=== PATIENT | male | born 1985 | race Hispanic/Latino ===

== ENCOUNTER 2018-04-16 07:15 | Emergency (ER) | payer SELFPAY ==
[2018-04-16] MEDS ORDERED: IBUPROFEN 200 MG TAB PO ONE (08:04)
[2018-04-16 08:19] LABS: Urine Blood TRACE (NEG); Urine Glucose 3+ (NEG); Urine Protein NEGATIVE (NEG); Urine Specific Gravity 1.025 (1.005-1.030); Urine pH 6.5 (5.0-7.0)
--- NOTE | 2018-04-16 08:21 | EDPHYS ---
Physician Documentation [facility] Name: Joseph Obrien Age: 32 yrs Sex: Male : 1985 Arrival Date: 04/16/2018 Time: 07:19 Bed 7 Private MD: ED Physician David Tesfaye HPI: 04/16 07:59 This 32 yrs old Male presents to ER via Ambulatory with complaints of Groin darvin Pain. 07:59 The patient presents with scrotal pain, of the right side. Onset: The symptoms/episode darvin began/occurred 5 day(s) ago. Modifying factors: The symptoms are alleviated by remaining still, the symptoms are aggravated by movement, pressure. Associated signs and symptoms: The patient has no apparent associated signs or symptoms. Severity of symptoms: At their worst the symptoms were mild, moderate, in the emergency department the symptoms are unchanged. The patient has not experienced similar symptoms in the past. Historical: - Allergies: 07:31 NKA; iw - Home Meds: 07:31 None [Active]; iw - PMHx: 07:31 Asthma; iw - PSHx: 07:31 None; iw - Immunization history:: Adult Immunizations unknown. - Social history:: Smoking status: Patient/guardian denies using tobacco. - Ebola Screening: : Patient negative for fever greater than or equal to 101.5 degrees Fahrenheit, and additional compatible Ebola Virus Disease symptoms Patient denies exposure to infectious person Patient denies travel to an Ebola-affected area in the 21 days before illness onset No symptoms or risks identified at this time. - Family history:: not pertinent. ROS: 07:59 Constitutional: Negative for fever, chills, and weight loss, Eyes: Negative for injury, darvin pain, redness, and discharge, ENT: Negative for injury, pain, and discharge, Neck: Negative for injury, pain, and swelling, Cardiovascular: Negative for chest pain, palpitations, and edema, Respiratory: Negative for shortness of breath, cough, wheezing, and pleuritic chest pain, Abdomen/GI: Negative for abdominal pain, nausea, vomiting, diarrhea, and constipation, Back: Negative for injury and pain, MS/Extremity: Negative for injury and deformity, Skin: Negative for injury, rash, and discoloration, Neuro: Negative for headache, weakness, numbness, tingling, and seizure, Psych: Negative for depression, anxiety, suicide ideation, homicidal ideation, and hallucinations, Allergy/Immunology: Negative for hives, rash, and allergies, Endocrine: Negative for neck swelling, polydipsia, polyuria, polyphagia, and marked weight changes, Hematologic/Lymphatic: Negative for swollen nodes, abnormal bleeding, and unusual bruising. 07:59 : Positive for testicular pain of the right testicle. Exam: 07:59 Constitutional: This is a well developed, well nourished patient who is awake, alert, darvin and in no acute distress. Head/Face: Normocephalic, atraumatic. Eyes: Pupils equal round and reactive to light, extra-ocular motions intact. Lids and lashes normal. Conjunctiva and sclera are non-icteric and not injected. Cornea within normal limits. Periorbital areas with no swelling, redness, or edema. ENT: Nares patent. No nasal discharge, no septal abnormalities noted. Tympanic membranes are normal and external auditory canals are clear. Oropharynx with no redness, swelling, or masses, exudates, or evidence of obstruction, uvula midline. Mucous membranes moist. Neck: Trachea midline, no thyromegaly or masses palpated, and no cervical lymphadenopathy. Supple, full range of motion without nuchal rigidity, or vertebral point tenderness. No Meningismus. Chest/axilla: Normal chest wall appearance and motion. Nontender with no deformity. No lesions are appreciated. Cardiovascular: Regular rate and rhythm with a normal S1 and S2. No gallops, murmurs, or rubs. Normal PMI, no JVD. No pulse deficits. Respiratory: Lungs have equal breath sounds bilaterally, clear to auscultation and percussion. No rales, rhonchi or wheezes noted. No increased work of breathing, no retractions or nasal flaring. Abdomen/GI: Soft, non-tender, with normal bowel sounds. No distension or tympany. No guarding or rebound. No evidence of tenderness throughout. Back: No spinal tenderness. No costovertebral tenderness. Full range of motion. Skin: Warm, dry with normal turgor. Normal color with no rashes, no lesions, and no evidence of cellulitis. MS/ Extremity: Pulses equal, no cyanosis. Neurovascular intact. Full, normal range of motion. Neuro: Awake and alert, GCS 15, oriented to person, place, time, and situation. Cranial nerves II-XII grossly intact. Motor strength 5/5 in all extremities. Sensory grossly intact. Cerebellar exam normal. Normal gait. Psych: Awake, alert, with orientation to person, place and time. Behavior, mood, and affect are within normal limits. 07:59 : CVA tenderness, is absent, Male external genitalia: Patient is not circumisioned. erythema, is absent, penile discharge, is absent, swelling: tenderness, that is mild, that is moderate. Vital Signs: 07:26 BP 127 / 83; Pulse 79; Resp 16; Temp 97.8(TE); Pulse Ox 98% on R/A; Weight 81.65 kg; iw Height 5 ft. 3 in. (160.02 cm); Pain 5/10; 07:26 Body Mass Index 31.89 (81.65 kg, 160.02 cm) iw MDM: 07:23 Patient medically screened. [facility] 04/16 07:43 Order name: Urine Microscopic Only jb1 04/16 07:49 Order name: Urine Dipstick--Ancillary (enter results); Complete Time: 08:21 bd 04/16 07:45 Order name: Scrotum Testicles US 04/16 08:21 Order name: Blood Glucose Level; Complete Time: 08:22 [facility] Administered Medications: 08:22 Drug: Motrin 600 mg Route: PO; ss 08:57 Follow up: Response: No adverse reaction; Pain is decreased ss 08:44 Drug: Rocephin (cefTRIAXone) 1 grams Route: IM; Site: right gluteus; ss 08:59 Follow up: Response: No adverse reaction 08:44 Drug: Zithromax 1 grams Route: PO; ss 08:59 Follow up: Response: No adverse reaction Point of Care Testing: Blood Glucose: 08:25 Blood Glucose: 174 mg/dL; Ranges: Critical Glucose Levels:Adult <50 mg/dl or >400 mg/dl <40 mg/dl or >180 mg/dl Disposition: 04/16/18 08:20 Discharged to Home. Impression: Epididymo-orchitis, Hydrocele, unspecified. - Condition is Stable. - Discharge Instructions: Orchitis, Testicular Self-Exam, Hydrocele, Adult. - Prescriptions for Ibuprofen 600 mg Oral Tablet - take 1 tablet by ORAL route every 6 hours As needed take with food; 20 tablet. Tylenol- Codeine #3 300-30 mg Oral Tablet - take 2 tablets by ORAL route every 6 hours As needed; 24 tablet. Doxycycline Hyclate 100 mg Oral Tablet - take 1 tablet by ORAL route every 12 hours; 20 tablet. - Medication Reconciliation Form, Thank You Letter, Antibiotic Education, Prescription Opioid Use, Work release form form. - Follow up: Private Physician; When: 2 - 3 days; Reason: Recheck today's complaints, Continuance of care, Re-evaluation by your physician. Follow up: Alejandro Stock; When: 2 - 3 days; Reason: Recheck today's complaints, Re-evaluation by your physician. - Problem is new. - Symptoms have improved. Signatures: Dispatcher [employer] EDDavid Quiroz MD MD cha Williams, Irene, RN RN iw Smirch, Shelby, RN RN ss Corrections: (The following items were deleted from the chart) 09:02 08:20 04/16/2018 08:20 Discharged to Home. Impression: Epididymo-orchitis; Hydrocele, ss unspecified. Condition is Stable. Discharge Instructions: Orchitis, Testicular Self-Exam, Hydrocele, Adult. Prescriptions for Ibuprofen 600 mg Oral Tablet - take 1 tablet by ORAL route every 6 hours As needed take with food; 20 tablet, Doxycycline Hyclate 100 mg Oral Tablet - take 1 tablet by ORAL route every 12 hours; 20 tablet, Tylenol-Codeine #3 300-30 mg Oral Tablet - take 2 tablets by ORAL route every 6 hours As needed; 24 tablet. and Forms are Medication Reconciliation Form, Thank You Letter, Antibiotic Education, Prescription Opioid Use. Follow up: Private Physician; When: 2 - 3 days; Reason: Recheck today's complaints, Continuance of care, Re-evaluation by your physician. Follow up: Alejandro Stock; When: 2 - 3 days; Reason: Recheck today's complaints, Re-evaluation by your physician. Problem is new. Symptoms have improved. darvin
--- NOTE | 2018-04-16 08:21 | ER ---
Nurse's Notes [facility] Name: Joseph Obrien Age: 32 yrs Sex: Male : 1985 Arrival Date: 04/16/2018 Time: 07:19 Bed 7 Private MD: Diagnosis: Epididymo-orchitis;Hydrocele, unspecified Presentation: 04/16 07:27 Presenting complaint: Patient states: has had pain in right testicle since last iw , thinks he was wearing his harness too tight at work, went to the clinic yesterday and was given a shot for pain and inflammation and was told he may need an ultrasound. Transition of care: patient was not received from another setting of care. Onset of symptoms was April 11, 2018. Risk Assessment: Do you want to hurt yourself or someone else? Patient reports no desire to harm self or others. Initial Sepsis Screen: Does the patient meet any 2 criteria? No. Patient's initial sepsis screen is negative. Does the patient have a suspected source of infection? No. Patient's initial sepsis screen is negative. Care prior to arrival: None. 07:27 Method Of Arrival: Ambulatory iw 07:27 Acuity: CECI 3 iw Historical: - Allergies: 07:31 NKA; iw - Home Meds: 07:31 None [Active]; iw - PMHx: 07:31 Asthma; iw - PSHx: 07:31 None; iw - Immunization history:: Adult Immunizations unknown. - Social history:: Smoking status: Patient/guardian denies using tobacco. - Ebola Screening: : Patient negative for fever greater than or equal to 101.5 degrees Fahrenheit, and additional compatible Ebola Virus Disease symptoms Patient denies exposure to infectious person Patient denies travel to an Ebola-affected area in the 21 days before illness onset No symptoms or risks identified at this time. - Family history:: not pertinent. Screenin:40 Abuse screen: Denies threats or abuse. Denies injuries from another. Nutritional ss screening: No deficits noted. Tuberculosis screening: Never had TB. Fall Risk None identified. Assessment: 07:30 General: Appears in no apparent distress. comfortable, Behavior is calm, cooperative. ss Pain: Complains of pain in right testicle Pain currently is 3 out of 10 on a pain scale. Quality of pain is described as aching, tender, Pain began 1 day ago. Is continuous, Aggravated by walking. Neuro: Level of Consciousness is awake, alert, obeys commands, Oriented to person, place, time, situation. Cardiovascular: Capillary refill < 3 seconds is brisk in bilateral fingers. Respiratory: Airway is patent Respiratory effort is even, unlabored. GI: Patient currently denies diarrhea, nausea, vomiting. : No signs and/or symptoms were reported regarding the genitourinary system. Denies burning with urination, discharge, inability to void, urinary frequency. EENT: Nares are clear Oral mucosa is moist. Derm: Skin is intact, is healthy with good turgor, Skin is pink, warm \T\ dry. normal. Musculoskeletal: Circulation, motion, and sensation intact. Range of motion: intact in all extremities. 07:40 Reassessment: Pt ambulated with steady gait, to restroom to give urine specimen. ss 08:00 Reassessment: Pt to Ultrasound VIA Wheelchair. ss Vital Signs: 07:26 BP 127 / 83; Pulse 79; Resp 16; Temp 97.8(TE); Pulse Ox 98% on R/A; Weight 81.65 kg; iw Height 5 ft. 3 in. (160.02 cm); Pain 5/10; 07:26 Body Mass Index 31.89 (81.65 kg, 160.02 cm) iw ED Course: 07:19 Patient arrived in ED. mr 07:23 David Tesfaye MD is Attending Physician. darvin 07:26 Arm band placed on. iw 07:31 Triage completed. iw 07:40 Patient has correct armband on for positive identification. Placed in gown. Bed in low ss position. Call light in reach. Side rails up X 1. 07:43 Urine collected: clean catch specimen, cloudy, suzanne colored. jb1 08:14 Scrotum Testicles US In Process Unspecified. EDMS 08:20 Alejandro Stock MD is Referral Physician. darvin 08:22 Jeaneth Pimentel, RADHA is Primary Nurse. ss 08:39 No provider procedures requiring assistance completed. Patient did not have IV access ss during this emergency room visit. Administered Medications: 08:22 Drug: Motrin 600 mg Route: PO; ss 08:57 Follow up: Response: No adverse reaction; Pain is decreased ss 08:44 Drug: Rocephin (cefTRIAXone) 1 grams Route: IM; Site: right gluteus; ss 08:59 Follow up: Response: No adverse reaction 08:44 Drug: Zithromax 1 grams Route: PO; ss 08:59 Follow up: Response: No adverse reaction Point of Care Testing: Blood Glucose: 08:25 Blood Glucose: 174 mg/dL; Ranges: Outcome: 08:20 Discharge ordered by MD. [place] 08:57 Discharged to home ambulatory. 08:57 Condition: good 08:57 Instructed on discharge instructions, follow up and referral plans. medication usage. 09:02 Patient left the ED. ss Signatures: Dispatcher [employer] Drew Carbajal jb1 David Tesfaye MD MD cha Rivera, Maria mr Liza Fisher, RADHA RN iw Jeaneth Pimentel RN RN ss Corrections: (The following items were deleted from the chart) 07:32 07:26 Temp 97.8F Temporal; ss iw
[2018-04-16 08:22] LABS: Urine Bacteria <20 /HPF (NONE SEEN); Urine Culture Reflex Order NOT NEEDED; Urine Mucus 1+ /HPF (NONE SEEN); Urine RBC <5 /HPF (NONE SEEN)
[2018-04-16] MEDS ORDERED: AZITHROMYCIN 250 MG TAB ONE (08:33)
[2018-04-16] MEDS ORDERED: WATER FOR INJ,STERILE 10 ML ONE (08:33)
[2018-04-16] MEDS ORDERED: CEFTRIAXONE 1000 MG/VIAL ONE (08:33)
--- NOTE | 2018-04-16 08:58 | RAD REPORT ---
EXAM DESCRIPTION: US - Scrotum Testicles - 04/16/2018 8:14 am CLINICAL HISTORY: Testicular/scrotal pain Preliminary findings provided at the time of the study. COMPARISON: None. FINDINGS: Testicular tissue is homogeneous with no intratesticular mass. Doppler interrogation shows normal intratesticular blood flow pattern. No hyperemia or asymmetry of the blood flow pattern. The patient has thin-walled anechoic 11 mm the right epididymal cyst. No enlargement or hyperemia of the epididymal tissue. No varicocele or extratesticular mass identified. No abnormal scrotal wall thicken ing. IMPRESSION: Approximately 11 mm right epididymal cyst. No other significant finding.
== END 2018-04-16 09:02 | disposition home or self-care (01) ==
LOC: ER 07:15
DX: N45.3 Epididymo-orchitis (principal); N43.3 Hydrocele, unspecified
CPT/HCPCS: 76870; 81003; 81015; 82962; 96372; 99284

== ENCOUNTER 2018-04-25 20:31 | Emergency (ER) | payer SELFPAY ==
--- NOTE | 2018-04-25 21:12 | ER ---
Nurse's Notes [facility] Name: Joseph Obrien Age: 32 yrs Sex: Male : 1985 Arrival Date: 04/25/2018 Time: 20:32 Bed 28 Private MD: Diagnosis: Insect bite (nonvenomous) of left forearm Presentation: 04/25 20:47 Presenting complaint: Patient states: he got an insect bite on his left forearm this mg2 afternoon \T\ 1300H probably while he was working. denies shortness of breath. Transition of care: patient was not received from another setting of care. Onset of symptoms was April 25, 2018. Risk Assessment: Do you want to hurt yourself or someone else? Patient reports no desire to harm self or others. Initial Sepsis Screen: Does the patient meet any 2 criteria? No. Patient's initial sepsis screen is negative. Does the patient have a suspected source of infection? No. Patient's initial sepsis screen is negative. Care prior to arrival: None. 20:47 Method Of Arrival: Ambulatory mg2 20:47 Acuity: CECI 4 mg2 Triage Assessment: 20:53 Bite description: bite sustained to left forearm by unknown insect, animal information: mg2 vaccination(s) is not applicable. General: Appears in no apparent distress. Historical: - Allergies: 20:50 NKA; mg2 - Home Meds: 20:50 None [Active]; mg2 - PMHx: 20:50 Asthma; mg2 - PSHx: 20:50 None; mg2 - Immunization history:: Flu vaccine is not up to date. - Social history:: Smoking status: Patient/guardian denies using tobacco, Patient uses alcohol, occasionally. Patient/guardian denies using street drugs, IV drugs. - Ebola Screening: : No symptoms or risks identified at this time. Screenin:51 Abuse screen: Denies threats or abuse. Denies injuries from another. Nutritional mg2 screening: No deficits noted. Tuberculosis screening: No symptoms or risk factors identified. Fall Risk None identified. Assessment: 20:51 General: Appears in no apparent distress. comfortable, Behavior is calm, cooperative. mg2 Pain: Denies pain. Neuro: Level of Consciousness is awake, alert, obeys commands, Oriented to person, place, time, situation. Cardiovascular: Capillary refill < 3 seconds Patient's skin is warm and dry. Respiratory: Airway is patent Respiratory effort is even, unlabored, Respiratory pattern is regular, symmetrical. GI: No signs and/or symptoms were reported involving the gastrointestinal system. : No signs and/or symptoms were reported regarding the genitourinary system. EENT: No signs and/or symptoms were reported regarding the EENT system. Derm: Skin is intact, is healthy with good turgor, Skin is pink, warm \T\ dry. normal, red, raised small bump on the left forearm. Musculoskeletal: No signs and/or symptoms reported regarding the musculoskeletal system. 21:24 Reassessment: Patient appears in no apparent distress at this time. Patient and/or mg2 family updated on plan of care and expected duration. Pain level reassessed. Patient is alert, oriented x 3, equal unlabored respirations, skin warm/dry/pink. Vital Signs: 20:51 BP 108 / 80; Pulse 79; Resp 18; Temp 97.9(O); Pulse Ox 100% on R/A; Weight 81.65 kg; mg2 Height 5 ft. 4 in. (162.56 cm); Pain 0/10; 21:24 BP 110 / 80; Pulse 81; Resp 18; Pulse Ox 100% on R/A; Pain 0/10; mg2 20:51 Body Mass Index 30.90 (81.65 kg, 162.56 cm) mg2 ED Course: 20:32 Patient arrived in ED. ds1 20:47 Taz Toribio, RADHA is Primary Nurse. mg2 20:50 Triage completed. mg2 20:51 Osmany Berrios MD is Attending Physician. gs 20:51 Arm band placed on. mg2 20:53 No provider procedures requiring assistance completed. mg2 20:54 Patient has correct armband on for positive identification. Bed in low position. mg2 21:05 Door closed. Warm blanket given. Ice pack to injury. mg2 21:23 Patient did not have IV access during this emergency room visit. mg2 Administered Medications: No medications were administered Outcome: 21:11 Discharge ordered by . 21:23 Discharged to home ambulatory. mg2 21:23 Condition: good 21:23 Discharge instructions given to patient, Instructed on discharge instructions, follow up and referral plans. Demonstrated understanding of instructions, follow-up care. 21:24 Patient left the ED. mg2 Signatures: Julisa Allison ds1 Osmany Berrios MD MD Taz Toribio, RN RN mg2
--- NOTE | 2018-04-25 21:12 | EDPHYS ---
Physician Documentation [facility] Name: Joseph Obrien Age: 32 yrs Sex: Male : 1985 Arrival Date: 04/25/2018 Time: 20:32 Bed 28 Private MD: ED Physician Osmany Berrios HPI: 04/25 21:05 This 32 yrs old Male presents to ER via Ambulatory with complaints of Insect gs Bite. 21:05 The patient was bitten on the dorsal aspect of left forearm, by insect. Onset: The gs symptoms/episode began/occurred acutely, today. Secondary to the bite the patient reports erythema, swelling. Associated signs and symptoms: Pertinent negatives: fever, sob. Severity of symptoms: At their worst the symptoms were very mild, in the emergency department the symptoms are unchanged. The patient has not experienced similar symptoms in the past. Historical: - Allergies: 20:50 NKA; mg2 - Home Meds: 20:50 None [Active]; mg2 - PMHx: 20:50 Asthma; mg2 - PSHx: 20:50 None; mg2 - Immunization history:: Flu vaccine is not up to date. - Social history:: Smoking status: Patient/guardian denies using tobacco, Patient uses alcohol, occasionally. Patient/guardian denies using street drugs, IV drugs. - Ebola Screening: : No symptoms or risks identified at this time. ROS: 21:05 All other systems are negative. gs Exam: 21:05 Cardiovascular: Regular rate and rhythm with a normal S1 and S2. No gallops, murmurs, gs or rubs. Normal PMI, no JVD. No pulse deficits. Respiratory: Lungs have equal breath sounds bilaterally, clear to auscultation and percussion. No rales, rhonchi or wheezes noted. No increased work of breathing, no retractions or nasal flaring. MS/ Extremity: Pulses equal, no cyanosis. Neurovascular intact. Full, normal range of motion. Neuro: Awake and alert, GCS 15, oriented to person, place, time, and situation. Cranial nerves II-XII grossly intact. Motor strength 5/5 in all extremities. Sensory grossly intact. Cerebellar exam normal. Normal gait. 21:05 Constitutional: The patient appears in no acute distress, alert, awake. 21:05 Skin: injury, bite(s), superficial, insect bite, mild erythema and raised macule x 1. Vital Signs: 20:51 BP 108 / 80; Pulse 79; Resp 18; Temp 97.9(O); Pulse Ox 100% on R/A; Weight 81.65 kg; mg2 Height 5 ft. 4 in. (162.56 cm); Pain 0/10; 21:24 BP 110 / 80; Pulse 81; Resp 18; Pulse Ox 100% on R/A; Pain 0/10; mg2 20:51 Body Mass Index 30.90 (81.65 kg, 162.56 cm) mg2 MDM: 21:03 Patient medically screened. 21:05 Data reviewed: vital signs, nurses notes. Administered Medications: No medications were administered Disposition: 04/25/18 21:11 Discharged to Home. Impression: Insect bite (nonvenomous) of left forearm. - Condition is Stable. - Discharge Instructions: Insect Bite, [id number]. - Medication Reconciliation Form, Thank You Letter, Antibiotic Education, Prescription Opioid Use form. - Follow up: Private Physician; When: 2 - 3 days; Reason: Re-evaluation by your physician. Signatures: Osmany Berrios MD MD Taz Toribio RN RN mg2 Corrections: (The following items were deleted from the chart) 21:24 21:11 04/25/2018 21:11 Discharged to Home. Impression: Insect bite (nonvenomous) of mg2 left forearm. Condition is Stable. Forms are Medication Reconciliation Form, Thank You Letter, Antibiotic Education, Prescription Opioid Use. Follow up: Private Physician; When: 2 - 3 days; Reason: Re-evaluation by your physician.
== END 2018-04-25 21:24 | disposition home or self-care (01) ==
LOC: ER 20:31
DX: S50.862A Insect bite (nonvenomous) of left forearm, initial encounter (principal)
CPT/HCPCS: 99281

== ENCOUNTER 2018-05-29 19:43 | Emergency (ER) | payer SELFPAY ==
[2018-05-29] MEDS ORDERED: TETRACAINE HCL 0.5% 2ML OPTH ONE (21:21)
[2018-05-29] MEDS ORDERED: FLUORESCEIN SODIUM 0.6 MG/WRAP ONE (21:21)
[2018-05-29] MEDS ORDERED: TETANUS & DIPHTHERIA TOX,ADULT 0.5 ML VIAL ONE (21:48)
[2018-05-29] MEDS ORDERED: TOBRAMYCIN SULF 0.3% OPTH OINT ONE (21:50)
--- NOTE | 2018-05-29 22:03 | ER ---
Nurse's Notes [facility] Name: Joseph Obrien Age: 33 yrs Sex: Male : 1985 Arrival Date: 05/29/2018 Time: 19:46 Bed Treatment Private MD: Diagnosis: Injury of conjunctiva and corneal abrasion without foreign body, right eye Presentation: 05/29 20:11 Presenting complaint: Patient states: He is having discomfort in his right eye since aj1 this morning. Denies any injury, states that he was sand blasting yesterday, but when he woke up this morning his eye felt fine. Reports it started bothering him suddenly around 11:00 today. Denies any changes to vision. Transition of care: patient was not received from another setting of care. Onset of symptoms was May 29, 2018 at 11:00. Risk Assessment: Do you want to hurt yourself or someone else? Patient reports no desire to harm self or others. Initial Sepsis Screen: Does the patient meet any 2 criteria? No. Patient's initial sepsis screen is negative. Does the patient have a suspected source of infection? No. Patient's initial sepsis screen is negative. Care prior to arrival: None. 20:11 Method Of Arrival: Ambulatory aj1 20:11 Acuity: CECI 4 aj1 Triage Assessment: 20:13 General: Appears in no apparent distress. comfortable, Behavior is calm, cooperative, aj1 appropriate for age. Pain: Complains of pain in right eye Pain currently is 1 out of 10 on a pain scale. Neuro: Level of Consciousness is awake, alert, obeys commands. Cardiovascular: Patient's skin is warm and dry. Respiratory: Airway is patent Respiratory effort is even, unlabored, Respiratory pattern is regular, symmetrical. Historical: - Allergies: 20:13 NKA; aj1 - Home Meds: 20:13 None [Active]; aj1 - PMHx: 20:13 Asthma; aj1 - PSHx: 20:13 None; aj1 - Immunization history:: Flu vaccine is not up to date. - Social history:: Smoking status: Patient/guardian denies using tobacco. - Ebola Screening: : Patient denies travel to an Ebola-affected area in the 21 days before illness onset. Screenin:26 Abuse screen: Denies threats or abuse. Nutritional screening: No deficits noted. fc Tuberculosis screening: No symptoms or risk factors identified. Fall Risk None identified. Assessment: 21:15 General: Appears uncomfortable, Behavior is calm, cooperative, appropriate for age. fc Pain: Complains of pain in right eye Quality of pain is described as burning, aching, Is continuous. Neuro: Level of Consciousness is awake, alert, obeys commands, Oriented to person, place, time, situation. Cardiovascular: No deficits noted. Respiratory: No deficits noted. GI: No deficits noted. : No deficits noted. EENT: Eyes are tearing on right eye Sclera/Cornea are reddened in right eye Reports pain in right eye. Derm: Skin is pink, warm \T\ dry. Musculoskeletal: Circulation, motion, and sensation intact. Capillary refill < 3 seconds, Range of motion: intact in all extremities. 21:50 Reassessment: No changes from previously documented assessment. Patient and/or family fc updated on plan of care and expected duration. Pain level reassessed. Patient is alert, oriented x 3, equal unlabored respirations, skin warm/dry/pink. Rhonda LIFE SCIENCE RESEARCH ASSISTANT in to see and do eye exam on pt. 22:20 Reassessment: No changes from previously documented assessment. Patient and/or family fc updated on plan of care and expected duration. Pain level reassessed. Patient is alert, oriented x 3, equal unlabored respirations, skin warm/dry/pink. Pt pending discharge. Vital Signs: 20:13 BP 113 / 75; Pulse 73; Resp 18; Temp 98.7(O); Pulse Ox 100% on R/A; Weight 81.65 kg aj1 (R); Height 5 ft. 4 in. (162.56 cm) (R); Pain 1/10; 22:30 BP 120 / 72; Pulse 78; Resp 20; Temp 98.6(O); Pulse Ox 100% on R/A; Pain 0/10; fc 20:13 Body Mass Index 30.90 (81.65 kg, 162.56 cm) aj1 Visual Acuity: 21:17 Left Eye Visual acuity 20/20, Pupil size 4 mm, ; Right Eye Visual acuity 20/15, Pupil bb size 4 mm, ; Both Eyes Visual acuity 20/15; Without Lenses; ED Course: 19:46 Patient arrived in ED. es 20:12 Triage completed. aj1 20:13 Arm band placed on Patient placed in waiting room. aj1 21:14 [facility] Wilson [facility]C [facility]. snw 21:14 Osmany Berrios MD is Attending Physician. snw 21:26 Patient has correct armband on for positive identification. Placed in gown. Bed in low fc position. Call light in reach. 21:26 No provider procedures requiring assistance completed. Patient did not have IV access fc during this emergency room visit. 22:01 Jane Das MD is Referral Physician. snw Administered Medications: 20:00 Drug: Tetracaine Drops 0.5 % 1 drops {Note: per Rhonda LIFE SCIENCE RESEARCH ASSISTANT.} Route: Ophthalmic; Site: fc right eye; 22:06 Follow up: Response: No adverse reaction; Marked relief of symptoms fc 21:50 Drug: ToBREx Drops (0.3 %) 2 drops {Note: per Rhonda LIFE SCIENCE RESEARCH ASSISTANT.} Route: Ophthalmic; Site: fc right eye; 22:06 Follow up: Response: No adverse reaction; No change in condition fc 21:50 Drug: Fluorescein Strip 1 strip Route: Ophthalmic; Site: right eye; fc 22:05 Follow up: Response: No adverse reaction; No change in condition fc 22:10 Drug: Tetanus-Diphtheria Toxoid Adult 0.5 ml {Logistics Team Leader: [employer]. Exp: fc 05/30/2020. Lot #: [id number]. } Route: IM; Site: right deltoid; 22:29 Follow up: Response: No adverse reaction; No change in condition Outcome: 22:02 Discharge ordered by MD. snw 22:30 Discharged to home ambulatory. 22:30 Condition: good 22:30 Discharge instructions given to patient, Instructed on discharge instructions, follow up and referral plans. medication usage, Demonstrated understanding of instructions, follow-up care, medications, Prescriptions given X 2. 22:31 Patient left the ED. fc Signatures: Ana Chiu RN RN aj1 Rhonda Wilson FNP-C AUTOMOTIVE SERVICE CASHIER-Csnw Linda Cordova Felicia RN RN Chyna Bolivar RN RN bb
--- NOTE | 2018-05-29 22:04 | EDPHYS ---
Physician Documentation [facility] Name: Joseph Obrien Age: 33 yrs Sex: Male : 1985 Arrival Date: 05/29/2018 Time: 19:46 Bed Treatment Private MD: ED Physician Osmany Berrios HPI: 05/29 22:05 This 33 yrs old Male presents to ER via Ambulatory with complaints of Eye snw Problem. 22:05 The patient is experiencing pain, tearing, The patient sustained a scratch, to the snw right eye, caused by sandblasting yesterday without difficulty. hours later pt states he rinsed his eye repeatedly 2nd to fb sensation. Onset: The symptoms/episode began/occurred suddenly, yesterday. Duration: the symptoms are continuous. Associated signs and symptoms: Pertinent positives: None. Patient does not utilize any form of vision correction. Severity of symptoms: At their worst the symptoms were moderate. The patient has not experienced similar symptoms in the past. It is unknown whether or not the patient has recently seen a physician. Historical: - Allergies: 20:13 NKA; aj1 - Home Meds: 20:13 None [Active]; aj1 - PMHx: 20:13 Asthma; aj1 - PSHx: 20:13 None; aj1 - Immunization history:: Flu vaccine is not up to date. - Social history:: Smoking status: Patient/guardian denies using tobacco. - Ebola Screening: : Patient denies travel to an Ebola-affected area in the 21 days before illness onset. ROS: 22:05 Constitutional: Negative for fever, chills, and weight loss, ENT: Negative for injury, snw pain, and discharge, Neck: Negative for injury, pain, and swelling, Cardiovascular: Negative for chest pain, palpitations, and edema, Respiratory: Negative for shortness of breath, cough, wheezing, and pleuritic chest pain, Abdomen/GI: Negative for abdominal pain, nausea, vomiting, diarrhea, and constipation, Back: Negative for injury and pain, : Negative for injury, bleeding, discharge, and swelling, MS/Extremity: Negative for injury and deformity, Skin: Negative for injury, rash, and discoloration, Neuro: Negative for headache, weakness, numbness, tingling, and seizure. 22:05 Eyes: Positive for foreign body sensation, tearing, of the right eye. Exam: 22:03 Visual Acuity: I have reviewed the nursing documentation. Visual acuity is within snw normal limits. 22:03 Constitutional: This is a well developed, well nourished patient who is awake, alert, and in no acute distress. Head/Face: Normocephalic, atraumatic. ENT: Nares patent. No nasal discharge, no septal abnormalities noted. Tympanic membranes are normal and external auditory canals are clear. Oropharynx with no redness, swelling, or masses, exudates, or evidence of obstruction, uvula midline. Mucous membranes moist. Neck: Trachea midline, no thyromegaly or masses palpated, and no cervical lymphadenopathy. Supple, full range of motion without nuchal rigidity, or vertebral point tenderness. No Meningismus. Chest/axilla: Normal chest wall appearance and motion. Nontender with no deformity. No lesions are appreciated. Cardiovascular: Regular rate and rhythm with a normal S1 and S2. No gallops, murmurs, or rubs. Normal PMI, no JVD. No pulse deficits. Respiratory: Lungs have equal breath sounds bilaterally, clear to auscultation and percussion. No rales, rhonchi or wheezes noted. No increased work of breathing, no retractions or nasal flaring. Abdomen/GI: Soft, non-tender, with normal bowel sounds. No distension or tympany. No guarding or rebound. No evidence of tenderness throughout. Back: No spinal tenderness. No costovertebral tenderness. Full range of motion. Skin: Warm, dry with normal turgor. Normal color with no rashes, no lesions, and no evidence of cellulitis. MS/ Extremity: Pulses equal, no cyanosis. Neurovascular intact. Full, normal range of motion. Neuro: Awake and alert, GCS 15, oriented to person, place, time, and situation. Cranial nerves II-XII grossly intact. Motor strength 5/5 in all extremities. Sensory grossly intact. Cerebellar exam normal. Normal gait. Psych: Awake, alert, with orientation to person, place and time. Behavior, mood, and affect are within normal limits. 22:03 Eyes: Periorbital structures: appear normal, Pupils: no acute changes, Extraocular movements: no acute changes, Conjunctiva: normal, Corneas: abrasion, that is small, at 6 o'clock, a fluorescein strip employed to appreciate the findings, Lids and lashes: appear normal, no acute changes. Vital Signs: 20:13 BP 113 / 75; Pulse 73; Resp 18; Temp 98.7(O); Pulse Ox 100% on R/A; Weight 81.65 kg aj1 (R); Height 5 ft. 4 in. (162.56 cm) (R); Pain 1/10; 22:30 BP 120 / 72; Pulse 78; Resp 20; Temp 98.6(O); Pulse Ox 100% on R/A; Pain 0/10; fc 20:13 Body Mass Index 30.90 (81.65 kg, 162.56 cm) aj1 Visual Acuity: 21:17 Left Eye Visual acuity 20/20, Pupil size 4 mm, ; Right Eye Visual acuity 20/15, Pupil bb size 4 mm, ; Both Eyes Visual acuity 20/15; Without Lenses; MDM: 21:15 Patient medically screened. snw 22:05 Data reviewed: vital signs, nurses notes. Data interpreted: Pulse oximetry: on room air snw is 100 %. Interpretation: normal. Counseling: I had a detailed discussion with the patient and/or guardian regarding: the historical points, exam findings, and any diagnostic results supporting the discharge/admit diagnosis, the need for outpatient follow up, to return to the emergency department if symptoms worsen or persist or if there are any questions or concerns that arise at home. Special discussion: Based on the history and exam findings, there is no indication for further emergent testing or inpatient evaluation. I discussed with the patient/guardian the need to see the opthamologist for further evaluation of the symptoms. 05/29 21:15 Order name: Visual Acuity; Complete Time: 21:23 snw 05/29 21:15 Order name: Eye Tray; Complete Time: 21:23 snw 05/29 21:15 Order name: Fluoresene Opth strip; Complete Time: 21:23 snw Administered Medications: 20:00 Drug: Tetracaine Drops 0.5 % 1 drops {Note: per Rhonda SENIOR MICROSTRATEGY DEVELOPER.} Route: Ophthalmic; Site: right eye; 22:06 Follow up: Response: No adverse reaction; Marked relief of symptoms 21:50 Drug: ToBREx Drops (0.3 %) 2 drops {Note: per Rhonda SENIOR MICROSTRATEGY DEVELOPER.} Route: Ophthalmic; Site: right eye; 22:06 Follow up: Response: No adverse reaction; No change in condition 21:50 Drug: Fluorescein Strip 1 strip Route: Ophthalmic; Site: right eye; 22:05 Follow up: Response: No adverse reaction; No change in condition 22:10 Drug: Tetanus-Diphtheria Toxoid Adult 0.5 ml {Taxicab Coordinator: [employer]. Exp: 05/30/2020. Lot #: [id number]. } Route: IM; Site: right deltoid; 22:29 Follow up: Response: No adverse reaction; No change in condition Disposition: 05/29/18 22:02 Discharged to Home. Impression: Injury of conjunctiva and corneal abrasion without foreign body, right eye. - Condition is Stable. - Discharge Instructions: Corneal Abrasion, VIS, Tetanus, Diphtheria (Td) - CDC. - Prescriptions for Vigamox 0.5 % Ophthalmic Drops - instill 1 drop by OPHTHALMIC route every 8 hours for 7 days; 5 milliliter. Diclofenac Sodium 75 mg Oral Tablet Sustained Release - take 1 tablet by ORAL route 2 times per day; 30 tablet. - Work release form, Medication Reconciliation Form, Thank You Letter, Antibiotic Education, Prescription Opioid Use form. - Follow up: Jane Das MD; When: 1 - 2 days; Reason: Recheck today's complaints, Continuance of care, Re-evaluation by your physician. Follow up: Emergency Department; When: As needed; Reason: Worsening of condition. Addendum: 06/01/2018 17:26 Co-signature as Attending Physician, Osmany Berrios MD. g s Signatures: Ana Chiu RN RN aj1 Rhonda Wilson FNP-C FOOD SERVICE AMBASSADOR-Anupama Garcia RN RN fc Starr, Gregory, MD MD gs Corrections: (The following items were deleted from the chart) 05/29 22:31 22:02 05/29/2018 22:02 Discharged to Home. Impression: Injury of conjunctiva and fc corneal abrasion without foreign body, right eye. Condition is Stable. Forms are Medication Reconciliation Form, Thank You Letter, Antibiotic Education, Prescription Opioid Use. Follow up: Jane Das; When: 1 - 2 days; Reason: Recheck today's complaints, Continuance of care, Re-evaluation by your physician. Follow up: Emergency Department; When: As needed; Reason: Worsening of condition. snw
== END 2018-05-29 22:31 | disposition home or self-care (01) ==
LOC: ER 19:43
DX: S05.01XA Injury of conjunctiva and corneal abrasion without foreign body, right eye, initial encounter (principal); X58.XXXA Exposure to other specified factors, initial encounter; Y93.89 Activity, other specified; Y92.9 Unspecified place or not applicable
CPT/HCPCS: 90714; 99283

== ENCOUNTER 2018-06-24 20:39 | Emergency (ER) | payer SELFPAY ==
[2018-06-24] MEDS ORDERED: FLUORESCEIN SODIUM 0.6 MG/WRAP ONE (21:44)
[2018-06-24] MEDS ORDERED: TETRACAINE HCL 0.5% 2ML OPTH ONE (21:44)
--- NOTE | 2018-06-24 22:00 | ER ---
Nurse's Notes [facility] Name: Joseph Obrien Age: 33 yrs Sex: Male : 1985 Arrival Date: 06/24/2018 Time: 20:40 Bed 12 Private MD: Diagnosis: Injury of conjunctiva and corneal abrasion without foreign body, right eye Presentation: 06/24 20:58 Presenting complaint: Patient states: that on Sunday he felt something in his right fc eye and attempted to wash it out, but today no change. Transition of care: patient was not received from another setting of care. Onset of symptoms was June 22, 2018. Risk Assessment: Do you want to hurt yourself or someone else? Patient reports no desire to harm self or others. Initial Sepsis Screen: Does the patient meet any 2 criteria? No. Patient's initial sepsis screen is negative. Does the patient have a suspected source of infection? No. Patient's initial sepsis screen is negative. Care prior to arrival: None. 20:58 Method Of Arrival: Ambulatory 20:58 Acuity: CECI 4 Triage Assessment: 21:01 General: Appears uncomfortable, Behavior is calm, cooperative, appropriate for age. fc Pain: Complains of pain in right eye Pain currently is 3 out of 10 on a pain scale. Quality of pain is described as aching, dull, Pain began 2-3 days ago. Is continuous. EENT: Eyes are tearing on right eye Reports pain in right eye. Neuro: Level of Consciousness is awake, alert, obeys commands, Oriented to person, place, time, situation. Cardiovascular: No deficits noted. Respiratory: No deficits noted. GI: No deficits noted. : No deficits noted. Derm: Skin is pink, warm \T\ dry. Musculoskeletal: Circulation, motion, and sensation intact. Capillary refill < 3 seconds, Range of motion: intact in all extremities. Historical: - Allergies: 21:00 NKA; fc - Home Meds: 21:00 None [Active]; fc - PMHx: 21:00 Asthma; fc - PSHx: 21:00 None; fc - Immunization history:: Last tetanus immunization: up to date. - Social history:: Smoking status: Patient/guardian denies using tobacco. - Ebola Screening: : Patient negative for fever greater than or equal to 101.5 degrees Fahrenheit, and additional compatible Ebola Virus Disease symptoms Patient denies exposure to infectious person Patient denies travel to an Ebola-affected area in the 21 days before illness onset. Screenin:39 Abuse screen: Denies threats or abuse. Denies injuries from another. Nutritional lp1 screening: No deficits noted. Tuberculosis screening: No symptoms or risk factors identified. Fall Risk None identified. Assessment: 21:38 General: Appears in no apparent distress. Behavior is appropriate for age. Pain: lp1 Complains of pain in right eye. Neuro: Level of Consciousness is awake, alert, obeys commands. Cardiovascular: No deficits noted. Respiratory: No deficits noted. GI: No deficits noted. : No deficits noted. EENT: Sclera/Cornea are clear in right eye. Derm: No deficits noted. Musculoskeletal: No deficits noted. Vital Signs: 21:00 BP 119 / 75; Pulse 73; Resp 18; Temp 98.0(O); Pulse Ox 99% on R/A; Weight 86.18 kg (R); fc Height 5 ft. 3 in. (160.02 cm) (R); Pain 3/10; 21:00 Body Mass Index 33.66 (86.18 kg, 160.02 cm) fc Visual Acuity: 21:39 Left Eye Visual acuity 20/20, Pupil size 4 mm, ; Right Eye Visual acuity 20/15, Pupil bb size 4 mm, ; Both Eyes Visual acuity 20/15; Without Lenses; ED Course: 20:40 Patient arrived in ED. am2 21:00 Triage completed. fc 21:00 Arm band placed on Patient placed in waiting room, Patient notified of wait time. fc 21:31 Jessie Saldana, RADHA is Primary Nurse. lp1 21:38 Ted Lino NP is PHCP. pm1 21:38 Florin Saab MD is Attending Physician. pm1 21:39 Patient did not have IV access during this emergency room visit. lp1 21:40 Patient has correct armband on for positive identification. lp1 21:58 Jane Das MD is Referral Physician. pm1 21:58 Maurice Honeycutt MD is Referral Physician. pm1 21:58 Assist provider with eye exam of right eye. using fluorescein stain, Performed by lp1 Ted Lino NP. Administered Medications: 21:58 Drug: Fluorescein Strip 1 strip Route: Ophthalmic; Site: right eye; lp1 21:58 Drug: Tetracaine Drops 0.5 % 1 drops Route: Ophthalmic; Site: right eye; lp1 Outcome: 21:59 Discharge ordered by . pm1 22:02 Discharged to home ambulatory. lp1 22:02 Condition: good 22:02 Discharge instructions given to patient, Instructed on discharge instructions, follow up and referral plans. medication usage, Demonstrated understanding of instructions, follow-up care, medications, Prescriptions given X 1. 22:03 Patient left the ED. lp1 Signatures: Anupama Giraldo RN RN Chyna Bolivar RN RN bb Jessie Saldana RN RN lp1 Ted Lino, JOURDAN BLOOD BANK LABORATORY TECHNICIAN pm1 Andreina Martins
--- NOTE | 2018-06-24 22:00 | EDPHYS ---
Physician Documentation [facility] Name: Joseph Obrien Age: 33 yrs Sex: Male : 1985 Arrival Date: 06/24/2018 Time: 20:40 Bed 12 Private MD: ED Physician Florin Saab HPI: 06/24 22:00 This 33 yrs old Male presents to ER via Ambulatory with complaints of Foreign pm1 Body In Right Eye. 22:00 The patient is experiencing foreign body sensation, to the right eye, caused by pm1 possible wood dust. Onset: The symptoms/episode began/occurred 2 day(s) ago. Duration: the symptoms are continuous. Alleviated by eye flush. Associated signs and symptoms: Pertinent negatives: fever, vision changes. Patient does not utilize any form of vision correction. Severity of symptoms: in the emergency department the symptoms have improved. Patient was sanding wood on Sunday and had the sensation of foreign body in his eye. Flushed his eye multiple times and has continued sensation of foreign body in his right eye. Tetanus less than 1 year. Historical: - Allergies: 21:00 NKA; fc - Home Meds: 21:00 None [Active]; fc - PMHx: 21:00 Asthma; fc - PSHx: 21:00 None; fc - Immunization history:: Last tetanus immunization: up to date. - Social history:: Smoking status: Patient/guardian denies using tobacco. - Ebola Screening: : Patient negative for fever greater than or equal to 101.5 degrees Fahrenheit, and additional compatible Ebola Virus Disease symptoms Patient denies exposure to infectious person Patient denies travel to an Ebola-affected area in the 21 days before illness onset. ROS: 22:00 Constitutional: Negative for fever, chills, and weight loss, ENT: Negative for injury, pm1 pain, and discharge, Neck: Negative for injury, pain, and swelling, Cardiovascular: Negative for chest pain, palpitations, and edema, Respiratory: Negative for shortness of breath, cough, wheezing, and pleuritic chest pain, Abdomen/GI: Negative for abdominal pain, nausea, vomiting, diarrhea, and constipation, Back: Negative for injury and pain. 22:00 : Negative for injury, bleeding, discharge, and swelling, MS/Extremity: Negative for injury and deformity, Skin: Negative for injury, rash, and discoloration. 22:00 Neuro: Negative for headache, weakness, numbness, tingling, and seizure. 22:00 Eyes: Positive for foreign body sensation, Negative for vision loss. Exam: 22:00 Constitutional: This is a well developed, well nourished patient who is awake, alert, pm1 and in no acute distress. Head/Face: Normocephalic, atraumatic. 22:00 ENT: Nares patent. No nasal discharge, no septal abnormalities noted. Tympanic membranes are normal and external auditory canals are clear. Oropharynx with no redness, swelling, or masses, exudates, or evidence of obstruction, uvula midline. Mucous membranes moist. Neck: Trachea midline, no thyromegaly or masses palpated, and no cervical lymphadenopathy. Supple, full range of motion without nuchal rigidity, or vertebral point tenderness. No Meningismus. Chest/axilla: Normal chest wall appearance and motion. Nontender with no deformity. No lesions are appreciated. Cardiovascular: Regular rate and rhythm with a normal S1 and S2. No gallops, murmurs, or rubs. Normal PMI, no JVD. No pulse deficits. Respiratory: Lungs have equal breath sounds bilaterally, clear to auscultation and percussion. No rales, rhonchi or wheezes noted. No increased work of breathing, no retractions or nasal flaring. Back: No spinal tenderness. No costovertebral tenderness. Full range of motion. Skin: Warm, dry with normal turgor. Normal color with no rashes, no lesions, and no evidence of cellulitis. MS/ Extremity: Pulses equal, no cyanosis. Neurovascular intact. Full, normal range of motion. 22:00 Eyes: Periorbital structures: appear normal, Pupils: no acute changes, normal size, normal reaction to light, Extraocular movements: intact throughout, Conjunctiva: no acute changes, no exudate, no injection, Corneas: abrasion, that is small, at 6 o'clock, foreign body, is not appreciated, a fluorescein strip employed to appreciate the findings, Sclera: no appreciated abnormality, Lids and lashes: appear normal, bilaterally. 22:00 Neuro: Orientation: is normal, Motor: moves all fours, Sensation: is normal, no obvious gross deficits, Gait: is steady, at a normal pace, without difficulty. Vital Signs: 21:00 BP 119 / 75; Pulse 73; Resp 18; Temp 98.0(O); Pulse Ox 99% on R/A; Weight 86.18 kg (R); fc Height 5 ft. 3 in. (160.02 cm) (R); Pain 3/10; 21:00 Body Mass Index 33.66 (86.18 kg, 160.02 cm) fc Visual Acuity: 21:39 Left Eye Visual acuity 20/20, Pupil size 4 mm, ; Right Eye Visual acuity 20/15, Pupil bb size 4 mm, ; Both Eyes Visual acuity 20/15; Without Lenses; MDM: 21:42 Patient medically screened. pm1 21:58 Data reviewed: vital signs. Data interpreted: Pulse oximetry: on room air is 99 %. pm1 Interpretation: normal. Counseling: I had a detailed discussion with the patient and/or guardian regarding: the historical points, exam findings, and any diagnostic results supporting the discharge/admit diagnosis, the need for outpatient follow up, to return to the emergency department if symptoms worsen or persist or if there are any questions or concerns that arise at home. 06/24 21:38 Order name: Eye Tray; Complete Time: 21:38 bb 06/24 21:38 Order name: Fluoresene Opth strip; Complete Time: 21:38 bb Administered Medications: 21:58 Drug: Fluorescein Strip 1 strip Route: Ophthalmic; Site: right eye; lp1 21:58 Drug: Tetracaine Drops 0.5 % 1 drops Route: Ophthalmic; Site: right eye; lp1 Disposition: 06/25 02:18 Co-signature as Attending Physician, Ted Lino NP I agree with the assessment and tw4 plan of care. Attestation: The patient's history, exam findings, diagnostics, and a summary of any interventions or procedures was reviewed in detail with Ted Lino NP. Disposition: 06/24/18 21:59 Discharged to Home. Impression: Injury of conjunctiva and corneal abrasion without foreign body, right eye. - Condition is Stable. - Discharge Instructions: Corneal Abrasion. - Prescriptions for Erythromycin 5 mg/gram (0.5 %) Ophthalmic Ointment - apply 1 ribbon by OPHTHALMIC route every 8 hours; 1 tube. - Medication Reconciliation Form, Thank You Letter, Antibiotic Education form. - Follow up: Emergency Department; When: As needed; Reason: Worsening of condition. Follow up: Jane Das MD; When: 2 - 3 days; Reason: Recheck today's complaints, Continuance of care, Re-evaluation by your physician. Follow up: Maurice Honeycutt MD; When: 2 - 3 days; Reason: Recheck today's complaints, Continuance of care, Re-evaluation by your physician. - Problem is new. - Symptoms have improved. Signatures: Anupama Giraldo RN RN Chyna Bolivar RN RN bb Jessie Saldana RN RN lp1 Ted Lino, PIPE STRAIGHTENER PIPE STRAIGHTENER pm1 Florin Saab MD MD tw4 Corrections: (The following items were deleted from the chart) 06/24 22:03 21:59 06/24/2018 21:59 Discharged to Home. Impression: Injury of conjunctiva and lp1 corneal abrasion without foreign body, right eye. Condition is Stable. Forms are Medication Reconciliation Form, Thank You Letter, Antibiotic Education, Prescription Opioid Use. Follow up: Emergency Department; When: As needed; Reason: Worsening of condition. Follow up: Jane Das; When: 2 - 3 days; Reason: Recheck today's complaints, Continuance of care, Re-evaluation by your physician. Follow up: Maurice Honeycutt; When: 2 - 3 days; Reason: Recheck today's complaints, Continuance of care, Re-evaluation by your physician. Problem is new. Symptoms have improved. pm1
== END 2018-06-24 22:03 | disposition home or self-care (01) ==
LOC: ER 20:39
DX: S05.01XA Injury of conjunctiva and corneal abrasion without foreign body, right eye, initial encounter (principal)
CPT/HCPCS: 99283

== ENCOUNTER 2018-09-01 18:32 | Emergency (ER) | payer SELFPAY ==
--- NOTE | 2018-09-01 20:24 | RAD REPORT ---
EXAM DESCRIPTION: RAD - Chest Pa And Lat (2 Views) - 09/01/2018 7:59 pm CLINICAL HISTORY: fever, cough Chest pain. COMPARISON: CHEST PA AND LAT 2 VIEW dated 06/01/2015 FINDINGS: Mild ill-defined lung opacities are present in a linear configuration in the lingula, whic h could be an area of developing pneumonia. The lungs are otherwise clear. The heart is normal in siz e. No displaced fractures.
[2018-09-01] MEDS ORDERED: LIDOCAINE 1% MPF 5 ML VIAL ONE (21:24)
[2018-09-01] MEDS ORDERED: CEFTRIAXONE 1000 MG/VIAL ONE (21:24)
--- NOTE | 2018-09-01 21:25 | ER ---
Nurse's Notes [facility] Name: Joseph Obrien Age: 33 yrs Sex: Male : 1985 Arrival Date: 09/01/2018 Time: 18:38 Bed 11 Private MD: Out, [facility] Diagnosis: Pneumonia Presentation: 09/01 18:52 Presenting complaint: Patient states: i have been feeling bad for 2 days i have a tw2 headache and a cough and when i cough my chest hurts, nasal congestion, and my mucous is green. Transition of care: patient was not received from another setting of care. Onset of symptoms was September 01, 2018. Risk Assessment: Do you want to hurt yourself or someone else? Patient reports no desire to harm self or others. Initial Sepsis Screen: Does the patient meet any 2 criteria? No. Patient's initial sepsis screen is negative. Does the patient have a suspected source of infection? No. Patient's initial sepsis screen is negative. Care prior to arrival: None. 18:52 Method Of Arrival: Ambulatory tw2 18:52 Acuity: CECI 4 tw2 Triage Assessment: 18:54 General: Appears in no apparent distress. Behavior is calm, cooperative, appropriate tw2 for age. Pain: Complains of pain in headache. EENT: Reports nasal congestion nasal discharge that is green that is yellow. Respiratory: Reports cough that is. Historical: - Allergies: 18:54 NKA; tw2 - Home Meds: 18:54 None [Active]; tw2 - PMHx: 18:54 Asthma; tw2 - PSHx: 18:54 None; tw2 - Immunization history:: Adult Immunizations. - Social history:: Smoking status: Patient/guardian denies using tobacco. - Ebola Screening: : Patient denies travel to an Ebola-affected area in the 21 days before illness onset. Screenin:36 Abuse screen: Denies threats or abuse. Nutritional screening: No deficits noted. bb Tuberculosis screening: No symptoms or risk factors identified. Fall Risk None identified. Assessment: 19:35 General: Appears in no apparent distress. Behavior is calm, cooperative. Neuro: Level bb of Consciousness is awake, alert, obeys commands, Oriented to person, place, time, situation. Cardiovascular: Heart tones S1 S2 present Patient's skin is warm and dry. Respiratory: Respiratory effort is even, unlabored, Breath sounds are clear bilaterally. Derm: Skin is pink, warm \T\ dry. Musculoskeletal: Circulation, motion, and sensation intact. 20:49 Reassessment: Patient and/or family updated on plan of care and expected duration. Pain bb level reassessed. 21:44 Reassessment: Patient and/or family updated on plan of care and expected duration. Pain bb level reassessed. Patient is alert, oriented x 3, equal unlabored respirations, skin warm/dry/pink. pt verbalized understanding of and agrees to plan of care discharge instructions given pt ambulated with steady gait to exit. Vital Signs: 18:53 BP 121 / 73; Pulse 72; Resp 18; Temp 97.6(O); Pulse Ox 99% on R/A; Pain 9/10; tw2 21:45 BP 126 / 73; Pulse 83; Resp 16 S; Temp 97.8(O); Pulse Ox 94% on R/A; bb ED Course: 18:38 Patient arrived in ED. sb2 18:38 Out, of [facility] is Private Physician. sb2 18:53 Triage completed. tw2 18:53 Arm band placed on. tw2 19:22 Martin Matta PA is PHCP. jmm 19:22 Osmany Berrios MD is Attending Physician. jmm 19:36 Chyna Bolivar, RADHA is Primary Nurse. bb 19:37 Patient has correct armband on for positive identification. Call light in reach. bb 19:57 X-ray completed. Patient tolerated procedure well. sg4 19:59 Chest Pa And Lat (2 Views) XRAY In Process Unspecified. EDMS 20:25 Flu and/or RSV swab sent to lab. Strep swab sent to lab. bb 21:45 No provider procedures requiring assistance completed. Patient did not have IV access bb during this emergency room visit. Administered Medications: 21:22 Drug: Rocephin (cefTRIAXone) 1 grams Route: IM; Site: right gluteus; bb 21:46 Follow up: Response: No adverse reaction bb Outcome: 21:24 Discharge ordered by . jmm 21:46 Discharged to home ambulatory. bb 21:46 Condition: stable 21:46 Discharge instructions given to patient, Instructed on discharge instructions, follow up and referral plans. medication usage, Demonstrated understanding of instructions, follow-up care, medications, Prescriptions given X 2. 21:46 Patient left the ED. bb Signatures: Dispatcher [employer] EDMS Martin Matta PA PA jmm Ballard, Brenda RN RN bb Nora Amato RN RN tw2 Earnestine Jimenez2 Evie Rodriguez 4
--- NOTE | 2018-09-01 21:25 | EDPHYS ---
Physician Documentation [facility] Name: Joseph Obrien Age: 33 yrs Sex: Male : 1985 Arrival Date: 09/01/2018 Time: 18:38 Bed 11 Private MD: Out, [facility] ED Physician Osmany Berrios HPI: 09/01 19:44 This 33 yrs old Male presents to ER via Ambulatory with complaints of Flu jmm Symptoms. 19:44 The patient or guardian reports cough, described as moderate. Onset: The jmm symptoms/episode began/occurred gradually, 1 day(s) ago. Modifying factors: The symptoms are alleviated by nothing. the symptoms are aggravated by nothing. Associated signs and symptoms: Pertinent positives: sore throat. This is a 33 year old male with a history of asthma that presents to the ED with complaints of cough, sinus congestion, chills, sore throat beginning yesterday. patient states his children were recently diagnosed with the flu. . Historical: - Allergies: 18:54 NKA; tw2 - Home Meds: 18:54 None [Active]; tw2 - PMHx: 18:54 Asthma; tw2 - PSHx: 18:54 None; tw2 - Immunization history:: Adult Immunizations. - Social history:: Smoking status: Patient/guardian denies using tobacco. - Ebola Screening: : Patient denies travel to an Ebola-affected area in the 21 days before illness onset. ROS: 19:44 Cardiovascular: Negative for chest pain, palpitations, and edema. jmm 19:44 Constitutional: Positive for chills, fever. 19:44 ENT: Positive for sore throat. 19:44 Respiratory: Positive for cough, wheezing. 19:44 All other systems are negative. Exam: 19:44 ENT: Moist Mucus Membranes Neck: Trachea midline, Supple Chest/axilla: Normal chest jmm wall appearance and motion. 19:44 Skin: General appearance color normal MS/ Extremity: Moves all extremities, no obvious deformities appreciated, no edema noted to the lower extremities Neuro: Awake and alert, normal gait Psych: Behavior is normal, Mood is normal, Patient is cooperative and pleasant 19:44 Constitutional: The patient appears in no acute distress, alert, awake. 19:44 Eyes: Conjunctiva: injected, bilaterally. 19:44 Cardiovascular: Rate: normal, Rhythm: regular. 19:44 Respiratory: the patient does not display signs of respiratory distress, Respirations: normal, Breath sounds: are clear throughout. 19:44 Abdomen/GI: Vital Signs: 18:53 BP 121 / 73; Pulse 72; Resp 18; Temp 97.6(O); Pulse Ox 99% on R/A; Pain 9/10; tw2 21:45 BP 126 / 73; Pulse 83; Resp 16 S; Temp 97.8(O); Pulse Ox 94% on R/A; bb MDM: 19:44 Patient medically screened. [facility] 21:22 Data reviewed: vital signs, nurses notes, lab test result(s), radiologic studies, plain [facility] films. Counseling: I had a detailed discussion with the patient and/or guardian regarding: the historical points, exam findings, and any diagnostic results supporting the discharge/admit diagnosis, lab results, radiology results, the need for outpatient follow up, to return to the emergency department if symptoms worsen or persist or if there are any questions or concerns that arise at home. ED course: Patient is alert and non toxic in appearance. Shows no signs of resp distress. Patient is advised to follow up with pcp tomorrow. Given strict return precautions. Patient understood and agrees with the plan of care. . 09/01 19:48 Order name: Flu [facility] 09/01 19:48 Order name: Strep [facility] 09/01 19:48 Order name: Chest Pa And Lat (2 Views) XRAY; Complete Time: 20:39 [facility] 09/01 19:48 Order name: Influenza Screen (A [facility] 09/01 19:48 Order name: Group A Streptococcus Rapid Sc [facility] 09/01 20:57 Order name: Throat Culture [facility] Administered Medications: 21:22 Drug: Rocephin (cefTRIAXone) 1 grams Route: IM; Site: right gluteus; bb 21:46 Follow up: Response: No adverse reaction bb Disposition: 09/02 03:40 Co-signature as Attending Physician, Osmany Berrios MD. Disposition: 09/01/18 21:24 Discharged to Home. Impression: Pneumonia. - Condition is Stable. - Discharge Instructions: Community-Acquired Pneumonia, Adult. - Prescriptions for cefdinir 300 mg Oral capsule - take 1 capsule by ORAL route every 12 hours; 20 capsule. Albuterol Sulfate 90 mcg/actuation - inhale 1-2 puff by INHALATION route every 4-6 hours; 1 Inhaler. - Medication Reconciliation Form, Thank You Letter, Antibiotic Education, Prescription Opioid Use, Work release form form. - Follow up: Private Physician; When: 1 - 2 days; Reason: Recheck today's complaints, Continuance of care, Re-evaluation by your physician. Signatures: Dispatcher [employer] EDMS Martin Matta PA PA jmm Ballard, Brenda, RN RN bb Nora Amato RN RN tw2 Osmany Berrios MD MD gs Corrections: (The following items were deleted from the chart) 09/01 21:46 21:24 09/01/2018 21:24 Discharged to Home. Impression: Pneumonia. Condition is Stable. bb Forms are Medication Reconciliation Form, Thank You Letter, Antibiotic Education, Prescription Opioid Use. Follow up: Private Physician; When: 1 - 2 days; Reason: Recheck today's complaints, Continuance of care, Re-evaluation by your physician. kvng
== END 2018-09-01 21:46 | disposition home or self-care (01) ==
LOC: ER 18:32
DX: J18.9 Pneumonia, unspecified organism (principal)
CPT/HCPCS: 71046; 87070; 87081; 87804; 96372; 99284

== ENCOUNTER 2018-09-21 19:17 | Emergency (ER) | payer SELFPAY ==
[2018-09-21] MEDS ORDERED: FLUORESCEIN SODIUM 0.6 MG/WRAP ONE (19:43)
[2018-09-21] MEDS ORDERED: TETRACAINE HCL 0.5% 2ML OPTH ONE (19:43)
--- NOTE | 2018-09-21 19:46 | ER ---
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 Transition of care: patient was not received from another setting of care. Onset of symptoms was September 21, 2018. Risk Assessment: Do you want to hurt yourself or someone else? Patient reports no desire to harm self or others. Initial Sepsis Screen: Does the patient meet any 2 criteria? No. Patient's initial sepsis screen is negative. Does the patient have a suspected source of infection? No. Patient's initial sepsis screen is negative. Care prior to arrival: None. 19:32 Method Of Arrival: Ambulatory [facility] 19:32 Acuity: CECI 4 jd3 Triage Assessment: 19:36 General: Appears in no apparent distress. uncomfortable, Behavior is calm, cooperative, cc3 appropriate for age. Pain: Complains of pain in right eye. Historical: - Allergies: 19:34 NKA; jd3 - Home Meds: 19:34 None [Active]; jd3 - PMHx: 19:34 Asthma; jd3 - PSHx: 19:34 None; jd3 - Immunization history:: Adult Immunizations up to date. - Social history:: Smoking status: Patient/guardian denies using tobacco. - Ebola Screening: : Patient negative for fever greater than or equal to 101.5 degrees Fahrenheit, and additional compatible Ebola Virus Disease symptoms. Screenin:36 Abuse screen: Denies threats or abuse. Denies injuries from another. Nutritional cc3 screening: No deficits noted. Tuberculosis screening: No symptoms or risk factors identified. Fall Risk Ambulatory Aid- None/Bed Rest/Nurse Assist (0 pts). Gait- Normal/Bed Rest/Wheelchair (0 pts) Mental Status- Oriented to own ability (0 pts). Assessment: 19:36 Reassessment: Patient appears in no apparent distress at this time. Patient and/or cc3 family updated on plan of care and expected duration. Pain level reassessed. Patient is alert, oriented x 3, equal unlabored respirations, skin warm/dry/pink. 20:00 Reassessment: Patient appears in no apparent distress at this time. Patient and/or cc3 family updated on plan of care and expected duration. Pain level reassessed. Patient is alert, oriented x 3, equal unlabored respirations, skin warm/dry/pink. YANA Gomez discharged the patient home with prescription given. No IV cannula in situ. Patient left ER vitally stable and ambulatory. Vital Signs: 19:34 BP 117 / 81; Pulse 85; Resp 16 S; Temp 98.1(O); Pulse Ox 95% on R/A; Weight 81.65 kg jd3 (R); Height 5 ft. 3 in. (160.02 cm) (R); Pain 6/10; 19:34 Body Mass Index 31.89 (81.65 kg, 160.02 cm) jd3 ED Course: 19:21 Patient arrived in ED. mr 19:27 Kirk Gomez PA is PHCP. jr8 19:27 Stef Mercado MD is Attending Physician. jr8 19:33 Triage completed. jd3 19:35 Arm band placed on. jd3 19:36 Tiara Espinosa is Primary Nurse. cc3 19:36 Patient has correct armband on for positive identification. Bed in low position. Call cc3 light in reach. Side rails up X 1. Pulse ox on. NIBP on. 19:43 Maurice Honeycutt MD is Referral Physician. jr8 20:00 No provider procedures requiring assistance completed. Patient did not have IV access cc3 during this emergency room visit. Administered Medications: No medications were administered Outcome: 19:44 Discharge ordered by . jr8 20:00 Discharged to home ambulatory. cc3 20:00 Condition: stable 20:00 Discharge instructions given to patient, Instructed on discharge instructions, follow up and referral plans. medication usage, Demonstrated understanding of instructions, follow-up care, medications, Prescriptions given X 1. 20:02 Patient left the ED. cc3 Signatures: Lisa Singer mr Kirk Gomez PA PA jr8 Wiley Colvin RN RN jTiara Schmidt cc3
--- NOTE | 2018-09-21 19:46 | EDPHYS ---
Physician Documentation [facility] Name: Joseph Obrien Age: 33 yrs Sex: Male : 1985 Arrival Date: 09/21/2018 Time: 19:21 Bed 15 Private MD: ED Physician Stef Mercado HPI: 09/21 19:31 This 33 yrs old Male presents to ER via Unassigned with complaints of Eye jr8 Problem. 19:31 The patient is experiencing pain. Onset: The symptoms/episode began/occurred acutely, jr8 today. Duration: the symptoms are continuous. Aggravated by light, Alleviated by nothing. Associated signs and symptoms: Pertinent positives: None. Patient does not utilize any form of vision correction. Severity of symptoms: At their worst the symptoms were mild in the emergency department the symptoms are unchanged. The patient has not experienced similar symptoms in the past. The patient has not recently seen a physician. 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 Stated that after getting off of work today felt pain in right eye. Unknown if something got in there or not. 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 Historical: - Allergies: 19:34 NKA; jd3 - Home Meds: 19:34 None [Active]; jd3 - PMHx: 19:34 Asthma; jd3 - PSHx: 19:34 None; jd3 - Immunization history:: Adult Immunizations up to date. - Social history:: Smoking status: Patient/guardian denies using tobacco. - Ebola Screening: : Patient negative for fever greater than or equal to 101.5 degrees Fahrenheit, and additional compatible Ebola Virus Disease symptoms. ROS: 19:31 ENT: Negative for injury, pain, and discharge, Neck: Negative for injury, pain, and jr8 swelling, Cardiovascular: Negative for chest pain, palpitations, and edema, Respiratory: Negative for shortness of breath, cough, wheezing, and pleuritic chest pain, Abdomen/GI: Negative for abdominal pain, nausea, vomiting, diarrhea, and constipation, Back: Negative for injury and pain, MS/Extremity: Negative for injury and deformity, Skin: Negative for injury, rash, and discoloration, Neuro: Negative for headache, weakness, numbness, tingling, and seizure. 19:31 Eyes: Positive for pain, of the right eye. Exam: 19:31 Visual Acuity: I have reviewed the nursing documentation. jr8 19:31 Head/Face: Normocephalic, atraumatic. ENT: Nares patent. No nasal discharge, no septal abnormalities noted. Tympanic membranes are normal and external auditory canals are clear. Oropharynx with no redness, swelling, or masses, exudates, or evidence of obstruction, uvula midline. Mucous membranes moist. Neck: Trachea midline, no thyromegaly or masses palpated, and no cervical lymphadenopathy. Supple, full range of motion without nuchal rigidity, or vertebral point tenderness. No Meningismus. Cardiovascular: Regular rate and rhythm with a normal S1 and S2. No gallops, murmurs, or rubs. Normal PMI, no JVD. No pulse deficits. Respiratory: Lungs have equal breath sounds bilaterally, clear to auscultation and percussion. No rales, rhonchi or wheezes noted. No increased work of breathing, no retractions or nasal flaring. Abdomen/GI: Soft, non-tender, with normal bowel sounds. No distension or tympany. No guarding or rebound. No evidence of tenderness throughout. Back: No spinal tenderness. No costovertebral tenderness. Full range of motion. Skin: Warm, dry with normal turgor. Normal color with no rashes, no lesions, and no evidence of cellulitis. MS/ Extremity: Pulses equal, no cyanosis. Neurovascular intact. Full, normal range of motion. Neuro: Awake and alert, GCS 15, oriented to person, place, time, and situation. Cranial nerves II-XII grossly intact. Motor strength 5/5 in all extremities. Sensory grossly intact. Cerebellar exam normal. Normal gait. 19:31 Eyes: Periorbital structures: appear normal, Pupils: equal, round, and reactive to light and accomodation, Extraocular movements: intact throughout, Conjunctiva: normal, Corneas: are normal, no evidence of abrasion, no foreign body, Sclera: abrasion, at 6 o'clock, Anterior chamber: normal, no hyphema, Lids and lashes: appear normal, Examination of the other eye reveals no obvious gross abnormality. Vital Signs: 19:34 BP 117 / 81; Pulse 85; Resp 16 S; Temp 98.1(O); Pulse Ox 95% on R/A; Weight 81.65 kg jd3 (R); Height 5 ft. 3 in. (160.02 cm) (R); Pain 6/10; 19:34 Body Mass Index 31.89 (81.65 kg, 160.02 cm) jd3 Procedures: 19:31 Eye Exam: Fluorescein. jr8 MDM: 19:27 Patient medically screened. jr8 19:31 Data reviewed: vital signs, nurses notes, and as a result, I will discharge patient. jr8 Data interpreted: Pulse oximetry: on room air is 95 %. Interpretation: normal. Counseling: I had a detailed discussion with the patient and/or guardian regarding: the historical points, exam findings, and any diagnostic results supporting the discharge/admit diagnosis, the need for outpatient follow up, an opthalmologist, to return to the emergency department if symptoms worsen or persist or if there are any questions or concerns that arise at home. Administered Medications: No medications were administered Disposition: 09/22 03:37 Co-signature as Attending Physician, Stef Mercado MD Available for consultation at ps1 all times . Disposition: 09/21/18 19:44 Discharged to Home. Impression: Abrasion of sclera to right eye. - Condition is Stable. - Discharge Instructions: Corneal Abrasion. - Prescriptions for Gentamicin 0.3 % Ophthalmic Drops - instill 2 drop by OPHTHALMIC route every 4 hours for 7 days; 1 bottle. - Medication Reconciliation Form, Thank You Letter, Antibiotic Education, Prescription Opioid Use form. - Follow up: Maurice Honeycutt MD; When: 1 week; Reason: If symptoms return, Recheck today's complaints, Continuance of care, Re-evaluation by your physician. - Problem is new. - Symptoms have improved. Signatures: Kirk Gomez PA PA jr8 Wiley Colvin RN RN jd3 Stef Mercado MD MD ps1 Tiara Espinosa cc3 Corrections: (The following items were deleted from the chart) 09/21 20:02 19:44 09/21/2018 19:44 Discharged to Home. Impression: Abrasion of sclera to right eye. cc3 Condition is Stable. Forms are Medication Reconciliation Form, Thank You Letter, Antibiotic Education, Prescription Opioid Use. Follow up: Maurice Honeycutt; When: 1 week; Reason: If symptoms return, Recheck today's complaints, Continuance of care, Re-evaluation by your physician. Problem is new. Symptoms have improved. jr8
== END 2018-09-21 20:02 | disposition home or self-care (01) ==
LOC: ER 19:17
DX: S05.01XA Injury of conjunctiva and corneal abrasion without foreign body, right eye, initial encounter (principal); X58.XXXA Exposure to other specified factors, initial encounter

== ENCOUNTER 2018-11-09 19:55 | Emergency (ER) | payer SELFPAY ==
[2018-11-09] MEDS ORDERED: FLUORESCEIN SODIUM 1 MG/WRAP ONE (20:36)
--- NOTE | 2018-11-09 20:58 | EDPHYS ---
Physician Documentation [facility] Name: Joseph Obrien Age: 33 yrs Sex: Male : 1985 Arrival Date: 11/09/2018 Time: 19:58 Bed 7 Private MD: ED Physician Florin Saab HPI: 11/09 20:53 This 33 yrs old Male presents to ER via Ambulatory with complaints of Eye tw4 Problem. 20:53 The patient is experiencing foreign body sensation, pain. Onset: The symptoms/episode tw4 began/occurred yesterday. Duration: the symptoms are continuous. Aggravated by blinking, Alleviated by eye flush. Associated signs and symptoms: Pertinent positives: None. Pertinent negatives: None. Patient does not utilize any form of vision correction. Severity of symptoms: At their worst the symptoms were mild in the emergency department the symptoms are unchanged. The patient has not experienced similar symptoms in the past. Historical: - Allergies: 20:12 NKA; tl2 - Home Meds: 20:12 None [Active]; tl2 - PMHx: 20:12 Asthma; tl2 - PSHx: 20:12 None; tl2 - Immunization history:: Adult Immunizations up to date. - Social history:: Smoking status: Patient/guardian denies using tobacco. - Ebola Screening: : No symptoms or risks identified at this time. ROS: 20:53 Constitutional: Negative for fever, chills, and weight loss, Cardiovascular: Negative tw4 for chest pain, palpitations, and edema, Respiratory: Negative for shortness of breath, cough, wheezing, and pleuritic chest pain, Abdomen/GI: Negative for abdominal pain, nausea, vomiting, diarrhea, and constipation, Back: Negative for injury and pain, MS/Extremity: Negative for injury and deformity, Skin: Negative for injury, rash, and discoloration, Neuro: Negative for headache, weakness, numbness, tingling, and seizure. 20:53 Eyes: Positive for foreign body sensation, injury or acute deformity, pain. Exam: 20:53 Visual Acuity: I have reviewed the nursing documentation. tw4 20:53 Constitutional: This is a well developed, well nourished patient who is awake, alert, and in no acute distress. Head/Face: Normocephalic, atraumatic. 20:53 Chest/axilla: Normal chest wall appearance and motion. Nontender with no deformity. No lesions are appreciated. Cardiovascular: Regular rate and rhythm with a normal S1 and S2. No gallops, murmurs, or rubs. Normal PMI, no JVD. No pulse deficits. Respiratory: Lungs have equal breath sounds bilaterally, clear to auscultation and percussion. No rales, rhonchi or wheezes noted. No increased work of breathing, no retractions or nasal flaring. Abdomen/GI: Soft, non-tender, with normal bowel sounds. No distension or tympany. No guarding or rebound. No evidence of tenderness throughout. 20:53 Eyes: Periorbital structures: appear normal, Pupils: no acute changes, equal, round, and reactive to light and accomodation, Extraocular movements: no acute changes, Conjunctiva: injected, in the right eye, Corneas: abrasion, that is small, approximately 1 mm(s), at 3 o'clock, a fluorescein strip employed to appreciate the findings. Vital Signs: 20:12 BP 104 / 73; Pulse 71; Resp 18; Temp 98.1(O); Pulse Ox 98% on R/A; Weight 81.65 kg; tl2 Height 5 ft. 4 in. (162.56 cm); Pain 4/10; 20:50 BP 103 / 66; Pulse 65; Resp 16; Pulse Ox 99% on R/A; ak1 20:12 Body Mass Index 30.90 (81.65 kg, 162.56 cm) tl2 MDM: 20:06 Patient medically screened. tw4 20:53 Differential diagnosis: Corneal abrasion of Corneal ulcer of. Data reviewed: vital tw4 signs, nurses notes. Data interpreted: Pulse oximetry: Interpretation: normal. Counseling: I had a detailed discussion with the patient and/or guardian regarding: the historical points, exam findings, and any diagnostic results supporting the discharge/admit diagnosis. Special discussion: I discussed with the patient/guardian in detail that at this point there is no indication for admission to the hospital. It is understood, however, that if the symptoms persist or worsen the patient needs to return immediately for re-evaluation. Administered Medications: 20:27 Drug: Fluorescein Strip 1 strip {Note: at bedside for ERP use.} Route: Ophthalmic; ak1 Site: right eye; Disposition: 11/09/18 20:57 Discharged to Home. Impression: Injury of conjunctiva and corneal abrasion without foreign body, right eye. - Condition is Stable. - Discharge Instructions: Corneal Abrasion, Corneal Abrasion, [id number]. - Prescriptions for Gentamicin 0.3 % Ophthalmic Drops - instill 1 drop by OPHTHALMIC route every 4 hours for 7 days; 1 bottle. - Medication Reconciliation Form, Thank You Letter, Antibiotic Education, Prescription Opioid Use form. - Follow up: Private Physician; When: Upon discharge from the Emergency Department; Reason: If symptoms return, Recheck today's complaints, Continuance of care. - Problem is new. - Symptoms have improved. Signatures: Audelia West RN RN ak1 Roxie Tucker RN RN tl2 Florin Saab MD MD tw4 Corrections: (The following items were deleted from the chart) 21:07 20:57 11/09/2018 20:57 Discharged to Home. Impression: Injury of conjunctiva and ak1 corneal abrasion without foreign body, right eye. Condition is Stable. Forms are Medication Reconciliation Form, Thank You Letter, Antibiotic Education, Prescription Opioid Use. Follow up: Private Physician; When: Upon discharge from the Emergency Department; Reason: If symptoms return, Recheck today's complaints, Continuance of care. Problem is new. Symptoms have improved. tw4
--- NOTE | 2018-11-09 20:58 | ER ---
Nurse's Notes [facility] Name: Joseph Obrien Age: 33 yrs Sex: Male : 1985 Arrival Date: 11/09/2018 Time: 19:58 Bed 7 Private MD: Diagnosis: Injury of conjunctiva and corneal abrasion without foreign body, right eye Presentation: 11/09 20:10 Presenting complaint: Patient states: Got dirt in eye at work at 1430 today. Washed it tl2 out at home but wants to make sure there isn't still dirt in eye. Denies vision disturbances. Transition of care: patient was not received from another setting of care. Onset of symptoms was November 09, 2018 at 14:30. Risk Assessment: Do you want to hurt yourself or someone else? Patient reports no desire to harm self or others. Initial Sepsis Screen: Does the patient meet any 2 criteria? No. Patient's initial sepsis screen is negative. Does the patient have a suspected source of infection? No. Patient's initial sepsis screen is negative. Care prior to arrival: None. 20:10 Method Of Arrival: Ambulatory tl2 20:10 Acuity: CECI 5 tl2 Triage Assessment: 20:12 General: Appears in no apparent distress. Pain: Complains of pain in right eye. EENT: tl2 Eyes are tearing on iris of right eye. 20:45 General: Behavior is calm, cooperative. Neuro: No deficits noted. Cardiovascular: No ak1 deficits noted. Respiratory: No deficits noted. GI: No signs and/or symptoms were reported involving the gastrointestinal system. : No signs and/or symptoms were reported regarding the genitourinary system. Derm: No signs and/or symptoms reported regarding the dermatologic system. Musculoskeletal: No signs and/or symptoms reported regarding the musculoskeletal system. Historical: - Allergies: 20:12 NKA; tl2 - Home Meds: 20:12 None [Active]; tl2 - PMHx: 20:12 Asthma; tl2 - PSHx: 20:12 None; tl2 - Immunization history:: Adult Immunizations up to date. - Social history:: Smoking status: Patient/guardian denies using tobacco. - Ebola Screening: : No symptoms or risks identified at this time. Screenin:14 Abuse screen: Denies threats or abuse. Nutritional screening: No deficits noted. tl2 Tuberculosis screening: No symptoms or risk factors identified. Fall Risk None identified. Assessment: 20:46 Reassessment: Patient appears in no apparent distress at this time. No changes from ak1 previously documented assessment. Patient and/or family updated on plan of care and expected duration. Pain level reassessed. Patient is alert, oriented x 3, equal unlabored respirations, skin warm/dry/pink. see triage assessment. Vital Signs: 20:12 BP 104 / 73; Pulse 71; Resp 18; Temp 98.1(O); Pulse Ox 98% on R/A; Weight 81.65 kg; tl2 Height 5 ft. 4 in. (162.56 cm); Pain 4/10; 20:50 BP 103 / 66; Pulse 65; Resp 16; Pulse Ox 99% on R/A; ak1 20:12 Body Mass Index 30.90 (81.65 kg, 162.56 cm) tl2 ED Course: 19:58 Patient arrived in ED. 20:06 Florin Saab MD is Attending Physician. tw4 20:12 Triage completed. tl2 20:12 Arm band placed on right wrist. tl2 20:13 Patient has correct armband on for positive identification. Bed in low position. Call tl2 light in reach. Side rails up X 1. 20:19 Audelia West, RN is Primary Nurse. ak1 20:45 No provider procedures requiring assistance completed. Patient did not have IV access ak1 during this emergency room visit. Administered Medications: 20:27 Drug: Fluorescein Strip 1 strip {Note: at bedside for ERP use.} Route: Ophthalmic; ak1 Site: right eye; Outcome: 20:57 Discharge ordered by . tw4 21:06 Discharged to home ambulatory. ak1 21:06 Condition: stable 21:06 Discharge instructions given to patient, Instructed on discharge instructions, follow up and referral plans. medication usage, Demonstrated understanding of instructions, follow-up care, medications, Prescriptions given X 1. 21:07 Patient left the ED. ak1 Signatures: Linda Cordova Audelia West, RN RN ak1 Roxie Tucker RN RN tl2 Florin Saab MD MD tw4
== END 2018-11-09 21:07 | disposition home or self-care (01) ==
LOC: ER 19:55
DX: S05.01XA Injury of conjunctiva and corneal abrasion without foreign body, right eye, initial encounter (principal)
CPT/HCPCS: 99283

== ENCOUNTER 2019-02-18 20:02 | Emergency (ER) | payer SELFPAY ==
--- OUTSIDE RECORDS SUMMARY | 2019-02-18 20:05 | XMS REPORT ---
:1985 [facility] Address [address] [place] [address] Care Team Providers Name Role Phone Unavailable Unavailable Unavailable Payers Payer Name Policy Type Policy Number Effective Date Expiration Date Problems This patient has no known problems. Allergies, Adverse Reactions, Alerts Allergy Name Allergy Status Severity Reaction(s) Onset Inactive Treating Comments Type Date Date Clinician No Known DA Active U 2019-0 Allergies 4-13 00:00: 00 No Known Drug DA Active U 2008- Intolerances 1-04 00:00: 00 Medications This patient has no known medications.
[2019-02-18 20:57] LABS: Absolute Lymphocytes (CBC) 0.4 K/uL (0.7-4.9); Basophils % 0.2 % (0-1.3); Eosinophils % 0.1 % (0-4.4); Hematocrit 43.7 % (39.6-49.0); Lymphocytes % 5.3 % (15.3-44.8); MPV 7.9 fL (7.6-11.3); Monocytes % 5.5 % (3.3-12.3); RBC Red Blood Cell Count 4.99 M/uL (4.33-5.43)
[2019-02-18] MEDS ORDERED: NA CHLORIDE 0.9% 1,000 ML ONE (21:03)
[2019-02-18] MEDS ORDERED: ONDANSETRON 4 MG/2 ML VIAL ONE (21:03)
[2019-02-18] MEDS ORDERED: ACETAMINOPHEN 325 MG TABLET ONE (21:03)
[2019-02-18 21:14] LABS: Albumin 4.1 g/dL (3.4-5.0); Bilirubin Direct 0.2 mg/dL (0-0.2); Bilirubin Total 1.1 mg/dL (0.2-1.0); Protein, Total 7.5 g/dL (6.4-8.2)
[2019-02-18 22:07] LABS: Blood Morphology Comment NOT SEEN (NOT SEEN); Platelet Estimate ADEQ
--- NOTE | 2019-02-18 22:11 | EDPHYS ---
Physician Documentation [facility] Name: Joseph Obrien Age: 33 yrs Sex: Male : 1985 Arrival Date: 02/18/2019 Time: 20:05 Bed 16 Private MD: ED Physician Osmany Berrios HPI: 02/18 20:38 This 33 yrs old Male presents to ER via Ambulatory with complaints of Flu jmm Symptoms, Nausea/Vomiting. 20:38 The patient presents to the emergency department with nausea, vomiting. Onset: The jmm symptoms/episode began/occurred acutely, this morning. Possible causes: unknown. The symptoms are aggravated by nothing. The symptoms are alleviated by nothing. Associated signs and symptoms: Pertinent positives: nausea, vomiting, Pertinent negatives: abdominal pain. Historical: - Allergies: 20:18 NKA; lp1 - Home Meds: 20:18 None [Active]; lp1 - PMHx: 20:18 Asthma; lp1 - PSHx: 20:18 None; lp1 - Immunization history:: Adult Immunizations up to date. - Social history:: Smoking status: Patient/guardian denies using tobacco. - Ebola Screening: : No symptoms or risks identified at this time. ROS: 20:38 Cardiovascular: Negative for chest pain, palpitations, and edema, Respiratory: Negative jmm for shortness of breath, cough, wheezing, and pleuritic chest pain. 20:38 Back: Negative for injury and pain, : Negative for injury, bleeding, discharge, and swelling, MS/Extremity: Negative for injury and deformity. 20:38 Constitutional: Positive for chills. 20:38 Abdomen/GI: Positive for nausea and vomiting. 20:38 All other systems are negative. Exam: 20:38 Constitutional: This is a well developed, well nourished patient who is awake, alert, jmm and in no acute distress. Head/Face: atraumatic. Eyes: EOMI, no conjunctival erythema appreciated ENT: Moist Mucus Membranes Neck: Trachea midline, Supple Chest/axilla: Normal chest wall appearance and motion. Cardiovascular: Regular rate and rhythm. No edema appreciated Respiratory: Normal respirations, no respiratory distress appreciated 20:38 Abdomen/GI: Inspection: abdomen appears normal, Bowel sounds: normal, Palpation: abdomen is soft and non-tender, in all quadrants. 20:38 Back: ROM is normal. 20:38 Musculoskeletal/extremity: ROM: intact in all extremities. 20:38 Skin: Appearance: Color: normal in color. 20:38 Neuro: Orientation: is normal, Mentation: is normal, Memory: is normal. 20:38 Psych: Behavior/mood is pleasant, cooperative. Vital Signs: 20:17 BP 124 / 72; Pulse 100; Resp 18; Temp 99.6(O); Pulse Ox 99% on R/A; Weight 81.65 kg; lp1 Height 5 ft. 3 in. (160.02 cm); Pain 7/10; 21:09 BP 112 / 65; Pulse 88; Resp 18; Pulse Ox 98% on R/A; tl2 22:02 BP 105 / 69; Pulse 81; Resp 18; Temp 98.6(O); Pulse Ox 97% on R/A; tl2 20:17 Body Mass Index 31.89 (81.65 kg, 160.02 cm) lp1 MDM: 20:33 Patient medically screened. [facility] 22:09 Data reviewed: vital signs, nurses notes. Counseling: I had a detailed discussion with kvng the patient and/or guardian regarding: the historical points, exam findings, and any diagnostic results supporting the discharge/admit diagnosis, lab results, the need for outpatient follow up, to return to the emergency department if symptoms worsen or persist or if there are any questions or concerns that arise at home. ED course: No abdominal pain on repeat evaluation. Patient is able to tolerate PO in the ED. Patient given early appendicitis return precautions. Patient understood and agrees with the plan of care. . 02/18 20:34 Order name: Basic Metabolic Panel [facility] 02/18 20:34 Order name: CBC with Diff [facility] 02/18 20:34 Order name: Creatinine for Radiology [facility] 02/18 20:34 Order name: Hepatic Function [facility] 02/18 20:34 Order name: Lipase; Complete Time: 21:37 [facility] 02/18 20:34 Order name: Flu; Complete Time: 21:37 [facility] 02/18 20:35 Order name: Basic Metabolic Panel; Complete Time: 21:37 [facility] 02/18 20:35 Order name: CBC with Automated Diff; Complete Time: 22:12 [facility] 02/18 20:35 Order name: Creatinine (Radiology Only); Complete Time: 21:37 [facility] 02/18 20:35 Order name: Liver (Hepatic) Function; Complete Time: 21:37 [facility] 02/18 21:09 Order name: Manual Differential; Complete Time: 22:12 [facility] 02/18 20:34 Order name: IV Saline Lock; Complete Time: 21:03 [facility] 02/18 20:34 Order name: Labs collected and sent; Complete Time: 21:03 [facility] 02/18 21:37 Order name: PO challenge; Complete Time: 22:12 [facility] Administered Medications: 20:58 Drug: NS 0.9% 1000 ml Route: IV; Rate: 1 bolus; Site: left antecubital; tl2 22:12 Follow up: IV Status: Completed infusion; IV Intake: 1000ml tl2 20:58 Drug: Zofran 4 mg Route: IVP; Site: left antecubital; tl2 21:30 Follow up: Response: No adverse reaction; Nausea is decreased tl2 20:58 Drug: Tylenol 650 mg Route: PO; tl2 22:12 Follow up: Response: No adverse reaction; Temperature is decreased tl2 Disposition: 02/19 02:41 Co-signature as Attending Physician, Osmany Berrios MD. Disposition: 02/18/19 22:11 Discharged to Home. Impression: Vomiting. - Condition is Stable. - Discharge Instructions: Nausea and Vomiting, Adult. - Prescriptions for Zofran ODT 4 mg Oral tablet,disintegrating - place 1 tablet by TRANSLINGUAL route every 4-6 hours; 20 tablet. - Medication Reconciliation Form, Thank You Letter, Antibiotic Education, Prescription Opioid Use, Work release form form. - Follow up: Private Physician; When: 1 - 2 days; Reason: Recheck today's complaints, Continuance of care, Re-evaluation by your physician. Signatures: Dispatcher [employer] [facility] Martin Matta PA PA Jessie Wilkinson RN RN lp1 Roxie Tucker RN RN tl2 Osmany Berrios MD MD Corrections: (The following items were deleted from the chart) 02/18 22:27 22:11 02/18/2019 22:11 Discharged to Home. Impression: Vomiting. Condition is Stable. tl2 Forms are Medication Reconciliation Form, Thank You Letter, Antibiotic Education, Prescription Opioid Use. Follow up: Private Physician; When: 1 - 2 days; Reason: Recheck today's complaints, Continuance of care, Re-evaluation by your physician. kvng
--- NOTE | 2019-02-18 22:11 | ER ---
Nurse's Notes [facility] Name: Joseph Obrien Age: 33 yrs Sex: Male : 1985 Arrival Date: 02/18/2019 Time: 20:05 Bed 16 Private MD: Diagnosis: Vomiting Presentation: 02/18 20:16 Presenting complaint: Patient states: Woke up this morning feel nauseous; States lp1 vomiting this afternoon, chills at home; continued nausea; Denies any diarrhea; General abdominal pain. Transition of care: patient was not received from another setting of care. Onset of symptoms was February 18, 2019. Risk Assessment: Do you want to hurt yourself or someone else? Patient reports no desire to harm self or others. Initial Sepsis Screen: Does the patient meet any 2 criteria? No. Patient's initial sepsis screen is negative. Does the patient have a suspected source of infection? No. Patient's initial sepsis screen is negative. Care prior to arrival: None. 20:16 Method Of Arrival: Ambulatory lp1 20:16 Acuity: CECI 3 lp1 Historical: - Allergies: 20:18 NKA; lp1 - Home Meds: 20:18 None [Active]; lp1 - PMHx: 20:18 Asthma; lp1 - PSHx: 20:18 None; lp1 - Immunization history:: Adult Immunizations up to date. - Social history:: Smoking status: Patient/guardian denies using tobacco. - Ebola Screening: : No symptoms or risks identified at this time. Screenin:18 Abuse screen: Denies threats or abuse. Denies injuries from another. Nutritional lp1 screening: No deficits noted. Tuberculosis screening: No symptoms or risk factors identified. Fall Risk None identified. Assessment: 20:20 General: Appears in no apparent distress. uncomfortable, Behavior is calm, cooperative, tl2 appropriate for age. General: Reports chills for feeling ill for. Pain: Complains of pain in abdomen. Neuro: Level of Consciousness is awake, alert, obeys commands, Oriented to person, place, time, situation. Cardiovascular: Denies chest pain. Respiratory: Airway is patent Respiratory effort is even, unlabored, Respiratory pattern is regular, symmetrical. GI: Abdomen is non-distended, Reports nausea, vomiting, Patient currently denies diarrhea. : No signs and/or symptoms were reported regarding the genitourinary system. Derm: Skin is pink, warm \T\ dry. 21:50 Reassessment: Patient appears in no apparent distress at this time. Patient and/or tl2 family updated on plan of care and expected duration. Pain level reassessed. Patient is alert, oriented x 3, equal unlabored respirations, skin warm/dry/pink. Patient states feeling better. 22:26 Reassessment: Patient appears in no apparent distress at this time. Patient and/or tl2 family updated on plan of care and expected duration. Pain level reassessed. Patient is alert, oriented x 3, equal unlabored respirations, skin warm/dry/pink. pt verbalized understanding of discharge instructions, need for follow up and prescription usage. Vital Signs: 20:17 BP 124 / 72; Pulse 100; Resp 18; Temp 99.6(O); Pulse Ox 99% on R/A; Weight 81.65 kg; lp1 Height 5 ft. 3 in. (160.02 cm); Pain 7/10; 21:09 BP 112 / 65; Pulse 88; Resp 18; Pulse Ox 98% on R/A; tl2 22:02 BP 105 / 69; Pulse 81; Resp 18; Temp 98.6(O); Pulse Ox 97% on R/A; tl2 20:17 Body Mass Index 31.89 (81.65 kg, 160.02 cm) lp1 ED Course: 20:05 Patient arrived in ED. es 20:14 Martin Matta PA is PHCP. [facility] 20:14 Osmany Berrios MD is Attending Physician. [facility] 20:17 Triage completed. lp1 20:18 Arm band placed on left wrist. lp1 20:35 Roxie Tucker, RADHA is Primary Nurse. tl2 20:45 Inserted saline lock: 20 gauge in left antecubital area, using aseptic technique. Blood tl2 collected. 20:45 Initial lab(s) drawn, by me, sent to lab. Flu and/or RSV swab sent to lab. tl2 21:09 Patient has correct armband on for positive identification. Bed in low position. Call tl2 light in reach. Side rails up X 1. 22:26 No provider procedures requiring assistance completed. IV discontinued, intact, tl2 bleeding controlled, No redness/swelling at site. Pressure dressing applied. Administered Medications: 20:58 Drug: NS 0.9% 1000 ml Route: IV; Rate: 1 bolus; Site: left antecubital; tl2 22:12 Follow up: IV Status: Completed infusion; IV Intake: 1000ml tl2 20:58 Drug: Zofran 4 mg Route: IVP; Site: left antecubital; tl2 21:30 Follow up: Response: No adverse reaction; Nausea is decreased tl2 20:58 Drug: Tylenol 650 mg Route: PO; tl2 22:12 Follow up: Response: No adverse reaction; Temperature is decreased tl2 Intake: 22:12 IV: 1000ml; Total: 1000ml. tl2 Outcome: 22:11 Discharge ordered by . kvng 22:26 Discharged to home ambulatory. tl2 22:26 Condition: stable 22:26 Discharge instructions given to patient, Instructed on discharge instructions, follow up and referral plans. medication usage, Demonstrated understanding of instructions, follow-up care, medications, Prescriptions given X 1. 22:27 Patient left the ED. tl2 Signatures: Martin Matta PA PA jmm Salyer, Edna es Pena, Laura, RN RN lp1 Roxie Tucker RN RN tl2 Corrections: (The following items were deleted from the chart) 22:13 22:02 BP 105 / 69; Pulse 81bpm; Resp 18bpm; Pulse Ox 97% RA; tl2 tl2
== END 2019-02-18 22:27 | disposition home or self-care (01) ==
LOC: ER 20:02
DX: R11.2 Nausea with vomiting, unspecified (principal); J45.909 Unspecified asthma, uncomplicated
CPT/HCPCS: 36415; 80048; 80076; 83690; 85025; 87804; 96361; 96374; 99284; J2405; J7030